=== PATIENT | male | born 1980 | race Caucasian/White ===

== ENCOUNTER 2023-05-19 19:36 | Emergency (ER) | payer BC ==
[~2023-05-19] VITALS: Ht 182.9 cm; Wt 100.2 kg
[2023-05-19 19:42] VITALS: BP_SYST 139; PULSE 63; RESP 16; TEMP 97.4; O2SAT 100
[2023-05-19 21:09] LABS: BILIRUBIN,URINE NEGATIVE (NEGATIVE); BLOOD, URINE NEGATIVE (NEGATIVE); CLARITY/URINE CLEAR (CLEAR); COLOR,URINE YELLOW (YELLOW); GLUCOSE,URINE NEGATIVE (NEGATIVE); KETONES,URINE 1+ (NEGATIVE); LEUKOCYTE ESTERASE ,URINE NEGATIVE (NEGATIVE); NITRITE, URINE NEGATIVE (NEGATIVE); PROTEIN URINE NEGATIVE (NEGATIVE); UROBILINOGEN,URINE 0.2 (0.2-1.0)
[2023-05-20 00:11] VITALS: BP_SYST 139; PULSE 63; RESP 16; TEMP 97.4; O2SAT 100
== END 2023-05-20 00:11 | disposition home or self-care (01) ==
LOC: SED 19:36
DX: N50.811 Right testicular pain (principal); R10.31 Right lower quadrant pain; Z79.899 Other long term (current) drug therapy
CPT/HCPCS: 36415; 76870; 81001; 81003; 87491; 99284